=== PATIENT | female | born 1985 | race Caucasian/White ===

== ENCOUNTER 2019-07-24 10:34 | Emergency (ER) | payer BC ==
[2019-07-24 11:02] VITALS: BP 114/73
--- NOTE | 2019-07-24 11:41 | UC ---
Complaint Female HPI - HPI Summary HPI Summary: History of recurrent bacterial vaginosis and occasional yeast vaginitis x 6 month so, seems to have increased after she had an emdometrial ablation last year. For the past week, has increase in burning and odor. Stable sexual relationship. Has mild dysuria but no frequency. She has found that treatment with oral clinda is preferable to flagyl or topical clindagel. She also has an increase in itching and suspects yeast as well. - History Of Current Complaint Chief Complaint: UCGU Stated Complaint: PERSONAL Time Seen by Provider: 07/24/19 11:28 Hx Obtained From: Patient Hx Last Menstrual Period: 07/11/19 ?: Yes Onset/Duration: Gradual Onset, Lasting Days Timing: Constant Severity Initially: Moderate Severity Currently: Moderate Pain Intensity: 6 Character: Burning Alleviating Factor(s): Nothing Associated Signs And Symptoms: Positive: Vaginal Bleeding/Discharge - Risk Factors Ectopic Risk Factor: Negative Ovarian Torsion Risk Factor: Reproductive Age - Allergies/Home Medications Allergies/Adverse Reactions: Allergies Allergy/AdvReac Type Severity Reaction Status Date / Time ciprofloxacin [From Cipro] Allergy Rash Verified 07/24/19 11:02 sulfamethoxazole Allergy Rash Verified 07/24/19 11:02 [From Bactrim] trimethoprim [From Bactrim] Allergy Rash Verified 07/24/19 11:02 Home Medications: Home Medications Amitriptyline TAB* [Elavil TAB*] 1 tab PO BEDTIME 07/24/19 [History Confirmed ] Cetirizine* [ZyrTEC 10 MG TAB*] 1 tab PO DAILY 07/24/19 [History Confirmed 07/24] Ibuprofen TAB* [Motrin TAB* 800 MG] 1 tab PO Q8H PRN 07/24/19 [History Confirmed 07/24/19] Montelukast Sodium TAB* [Singulair 10 MG TAB*] 1 tab PO DAILY 07/24/19 [History Confirmed 07/24/19] Rabeprazole Sodium [Aciphex] 1 tab PO BID 07/24/19 [History Confirmed 07/24/19] SUMAtriptan TAB* [Imitrex TAB*] 1 tab PO DAILY 07/24/19 [History Confirmed 07/24] Topiramate [Topamax] 1 tab PO BID 07/24/19 [History Confirmed 07/24/19] traZODone TAB* [Desyrel TAB*] 1 tab PO BEDTIME 07/24/19 [History Confirmed 07/24] PMH/Surg Hx/FS Hx/Imm Hx - Additional Past Medical History Additional PMH: obesity Previously Healthy: Yes Endocrine History: Hypothyroidism Respiratory History: Asthma GI/ History: Gastroesophageal Reflux - Surgical History Surgical History: Yes Surgery Procedure, Year, and Place: ablasion D&C 2017. bladder neurostimualtor 2016. ORIF R leg 2008. tubal ligation 2006 - Family History Known Family History: Positive: Cardiac Disease, Hypertension, Diabetes - Social History Occupation: Employed Full-time - at home with children Alcohol Use: None Substance Use Type: None Smoking Status (MU): Never Smoked Tobacco Review of Systems All Other Systems Reviewed And Are Negative: Yes Constitutional: Positive: Fatigue Genitourinary: Positive: Vaginal/Penile Burning Musculoskeletal: Positive: Arthralgia - hx of right leg fracture with persistent ache Psychological: Positive: Negative Is Patient Immunocompromised?: No Physical Exam Triage Information Reviewed: Yes Appearance: Well-Appearing, No Pain Distress, Obese Vital Signs: Initial Vital Signs Temp 98.6 F 07/24/19 10:54 Pulse 93 07/24/19 10:54 Resp 16 07/24/19 10:54 BP 114/73 07/24/19 10:54 Pulse Ox 100 07/24/19 10:54 Neck exam: Other - boggy thyroid Respiratory: Positive: Lungs clear, Normal breath sounds Abdomen Description: Positive: Nontender, No Organomegaly, Soft, Other: - normal perineum with mild erythema, scant discharge. Musculoskeletal: Positive: Strength Intact Neurological Exam: Normal Neurological: Positive: Alert Psychological Exam: Normal Skin Exam: Normal Complaint Female Dx - Course Course Of Treatment: Begin use of clindamycin 300mg twice daily, and use a single dose of fluconazole for treatment of suspected yeast. The results of the swab will take 1 to 2 days. Use probiotics to decrease your risk of vaginal infections. Follow up with your sparker and patcher, and, as discussed, being screened for diabetes would be a good plan. - Differential Dx/Diagnosis Differential Diagnosis/HQI/PQRI: Urinary Tract Infection Provider Diagnosis: Bacterial vaginosis Discharge ED - Sign-Out/Discharge Documenting (check all that apply): Patient Departure All imaging exams completed and their final reports reviewed: No Studies - Discharge Plan Condition: Stable Disposition: HOME Prescriptions: Clindamycin Cap(NF) [Clindamycin Cap 300 mg Cap(NF)] 300 mg PO BID #14 cap Fluconazole 150 MG (NF) [Diflucan 150 mg (NF)] 150 mg PO ONCE #1 tab Patient Education Materials: Bacterial Vaginosis (ED) Referrals: No Primary Care Phys,NOPCP [Primary Care Provider] - Additional Instructions: Begin use of clindamycin 300mg twice daily, and use a single dose of fluconazole for treatment of suspected yeast. The results of the swab will take 1 to 2 days. Use probiotics to decrease your risk of vaginal infections. Follow up with your sparker and patcher, and, as discussed, being screened for diabetes would be a good plan. - Billing Disposition and Condition Condition: STABLE Disposition: Home
--- NOTE | 2019-07-26 07:41 | UC ---
- Progress Note Progress Note: + gardnerella -treated w/ clindamycin. -neg shruti and neg trichomonas Course/Dx - Diagnoses Provider Diagnoses: Bacterial vaginosis Discharge ED - Sign-Out/Discharge Documenting (check all that apply): Post-Discharge Follow Up All imaging exams completed and their final reports reviewed: No Studies - Discharge Plan Condition: Stable Disposition: HOME Prescriptions: Clindamycin Cap(NF) [Clindamycin Cap 300 mg Cap(NF)] 300 mg PO BID #14 cap Fluconazole 150 MG (NF) [Diflucan 150 mg (NF)] 150 mg PO ONCE #1 tab Patient Education Materials: Bacterial Vaginosis (ED) Referrals: No Primary Care Phys,NOPCP [Primary Care Provider] - Additional Instructions: Begin use of clindamycin 300mg twice daily, and use a single dose of fluconazole for treatment of suspected yeast. The results of the swab will take 1 to 2 days. Use probiotics to decrease your risk of vaginal infections. 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 - Billing Disposition and Condition Condition: STABLE Disposition: Home
== END 2019-07-24 12:23 | disposition home or self-care (01) ==
LOC: UCCORT 10:34
DX: N76.0 Acute vaginitis (principal); B96.89 Other specified bacterial agents as the cause of diseases classified elsewhere; K21.9 Gastro-esophageal reflux disease without esophagitis
CPT/HCPCS: 87480; 87510; 87660; 99212; G0463